=== PATIENT | male | born 1950 | race Caucasian/White ===

== ENCOUNTER → 2021-04-07 | Day surgery (SDC) | payer MEDICARE, OTHER ==
[~2021-04-07] VITALS: Ht 188 cm; Wt 74.8 kg
[~2021-04-07] MED LIST: CIPRO500 MG PO; LAXATIVE SUPPOS10 MG PR; MAGNESIUM250 MG PO; MIRAPEX0.125 MG PO; ONDANSETRON ODT8 MG PO; PRILOSEC20 MG PO; VICODIN 10/3251 EACH PO
[2021-04-07 09:49] LABS: HGB 16.2 g/dl (13.2-18.0); MCH 32.9 pg (25.0-31.0); MCHC 31.8 g/dL (32.0-36.0); MCV 103.4 fL (78.0-100.0); MPV 10.4 fL (6.0-9.5); RBC 4.93 M/uL (4.70-6.00); RDW 13.2 % (11.5-14.0); WBC 4.8 K/uL (4.0-10.5)
[2021-04-07 09:52] LABS: ALBUMIN 3.7 g/dL (3.4-5.0); BILIRUBIN - TOTAL 0.3 mg/dL (0.2-1.0); BUN/CREAT RATIO (CALC) 7.5 RATIO; CREATININE 1.33 mg/dL (0.67-1.17); GLOBULIN (CALCULATION) 4.2 g/dL; POTASSIUM 4.6 mmol/L (3.5-5.1); TOTAL PROTEIN 7.9 g/dL (6.4-8.2)
== END | disposition home or self-care (01) ==
LOC: FAS 07:47
PROVIDERS: Surgery
DX: K40.20 Bilateral inguinal hernia, without obstruction or gangrene, not specified as recurrent (principal); D17.6 Benign lipomatous neoplasm of spermatic cord; K21.9 Gastro-esophageal reflux disease without esophagitis; F17.200 Nicotine dependence, unspecified, uncomplicated; Z88.0 Allergy status to penicillin; Z79.891 Long term (current) use of opiate analgesic; Z79.899 Other long term (current) drug therapy
CPT/HCPCS: 36415; 80053; C1781; J1956; J2250; J2405; J2704; J2710; J3010; J3490; J7120

== ENCOUNTER 2021-05-22 09:35 | Emergency (ER) | payer MEDICARE, OTHER ==
[~2021-05-22 09:35] MED LIST changes: -CIPRO500 MG PO
[2021-05-22 10:57] LABS: BILIRUBIN 1+ mg/dL (NEGATIVE); BLOOD 3+ Ery/uL (NEGATIVE); CLARITY CLOUDY (CLEAR); COLOR BROWN (YELLOW); GLUCOSE (U) NORMAL (NORMAL); LEUKOCYTES 2+ Leu/uL (NEGATIVE); NITRITE POSITIVE (NEGATIVE); PROTEIN 3+ mg/dL (NEGATIVE); SPECIFIC GRAVITY >=1.030 (1.001-1.030)
[2021-05-22 11:04] LABS: BACTERIA 3+; URINARY RBC TNTC
[2021-05-22 11:31] LABS: BASOPHIL 0.2 % (0-2); EOSINOPHIL 0.1 % (0-7); HCT 46.3 % (42.0-52.0); HGB 15.2 g/dl (13.2-18.0); LYMPHOCYTE 3.3 % (15-48); MCH 31.9 pg (25.0-31.0); MCHC 32.8 g/dL (32.0-36.0); MCV 97.3 fL (78.0-100.0); MPV 9.3 fL (6.0-9.5); NEUTROPHIL 88.8 % (41-80); NRBC 0; PLT 293 K/uL (150-400); RBC 4.76 M/uL (4.70-6.00); RDW 13.7 % (11.5-14.0); WBC 15.9 K/uL (4.0-10.5)
[2021-05-22 11:36] LABS: INR 1.07 (0.9-1.2); PROTHROMBIN TIME 13.3 SECONDS (11.8-13.4)
[2021-05-22 11:44] LABS: BUN/CREAT RATIO (CALC) 11.8 RATIO; CREATININE 1.27 mg/dL (0.67-1.17)
[2021-05-22 12:38] LABS: PTT 28.5 SECONDS (24.4-34.7)
[2021-05-22] MEDS ORDERED: CIPRO500 MG PO (13:45)
== END 2021-05-22 14:00 | disposition home or self-care (01) ==
LOC: FER 09:35
PROVIDERS: Emergency Medicine
DX: N39.0 Urinary tract infection, site not specified (principal); K21.9 Gastro-esophageal reflux disease without esophagitis; F17.210 Nicotine dependence, cigarettes, uncomplicated; Z88.0 Allergy status to penicillin
CPT/HCPCS: 36415; 80048; 81001; 85025; 85610; 85730; 87076; 87088; 87186

== ENCOUNTER 2021-05-27 12:32 | Emergency (ER) | payer MEDICARE, OTHER ==
[~2021-05-27 12:32] MED LIST changes: +CIPRO500 MG PO
== END 2021-05-27 14:31 | disposition home or self-care (01) ==
LOC: FER 12:32
DX: K59.00 Constipation, unspecified (principal); F17.200 Nicotine dependence, unspecified, uncomplicated; Z88.0 Allergy status to penicillin
CPT/HCPCS: 99283